=== PATIENT | female | born 2000 | race Caucasian/White ===

== ENCOUNTER → 2024-08-16 11:00 | Day surgery (SDC) | payer BC, SELFPAY ==
--- NOTE | 2024-08-15 16:34 | W.CON.GYNONC ---
Chief Complaint
-
Right Vulvar Cyst
History of Present Illness
23 yo G0 WF presenting for management of right vulvar cyst.
Patient is in college, has had several episodes of pain and swelling. she was seen [address] Mares. had drainage in office by dr Mares. did not do word catheter.
she has been seen by [facility] in [place] while in college, drained some fluid and treated by them with antibiotic.
she is frustrated and is coming in for evaluation.
Medical History
Past Medical History
Additional Past Medical History:
recurrent strep throat infection
Past Surgical History: Reports Tonsilectomy
Social History
Tobacco: Non-smoker
Alcohol: Occasional
Drug: None
Personal: Single
Living: Other (college student)
Employment: Not Employed
Family History
Family History: Reviewed & Not Pertinent
Allergies
Allergies reflect when allergies were last updated in [facility].
No Known Allergies Allergy (Verified 08/15/24 14:59)
Review of Systems
-
History Source: Patient
A 12 point Review of Systems was completed except as noted: Yes
Constitutional: Reports No Symptoms
EENT: Reports No Symptoms
Respiratory: Reports No Symptoms
Cardiac: Reports No Symptoms
Abdomen/GI: Reports No Symptoms
: Reports Other (vulvar discomfort)
Musculoskeletal: Reports No Symptoms
Skin: Reports No Symptoms
Neurological: Reports No Symptoms
Endocrine: Reports No Symptoms
Hematologic/Lymphatic: Reports No Symptoms
Psych: Reports No Symptoms
Physical Exam
Physical Exam
General: Well Developed and No Apparent Distress
HEENT: Normocephalic
Respiratory: Clear
Cardiac: S1/S2 and Regular Rhythm
GI: Soft, Non Tender and Non Distended
Genito-urinary: No Costovertebral Tend
External Genitalia: Lesion Present (labial cyst v Bartholin gland)
Cervix: Normal
Uterus: Normal
Musculoskeletal: No Clubbing, No Cyanosis and No Edema
Skin: Warm and Dry
Neuro: Awake, Alert, Oriented and AO x 3
Hematologic/Lymphatic: No Lymphadenopathy
Psych: Intact Judgement
Impression / Plan
-
23 you wf with recurrent cyst and abcess involving labia suspected to be Bartholin or Davion duct cyst.
plan for exam under ansthesia with excision versus marsupialization of recurrent cyst.
Risks discussed including infection, pain, bleeding, injury to adjacent organs, DVT, PE, CV problems, may also cause dyspareunia, but she is already unable to engage in intercourse due to pain.
[2024-08-16] VITALS (13 sets, daily range): BP systolic 88–111; BP diastolic 58–77; BMI 21.5
[2024-08-16 13:15] LABS: Hematocrit 35.3 % (37.0-47.0); Hemoglobin 12.3 g/dL (12.0-16.0); Mean Corp Hgb Conc. 34.8 g/dL (33.0-37.0); Mean Corpuscular Hgb 28.3 pg (27.0-31.0); Mean Corpuscular Volume 81.1 fL (81.0-99.0); Mean Platelet Volume 9.9 fL (7.4-10.4); Platelet Count 196 10^3/uL (130-400); Red Blood Cell Count 4.35 10^6/uL (4.20-5.40); Red Cell Dist. Width 13.5 % (11.5-14.5); White Blood Cell Count 14.8 10^3/uL (4.8-10.8)
[2024-08-16 13:18] LABS: HCG, Urine Qualitative Screen Negative
[2024-08-16] MEDS: CELEBREX 200 MG PO (13:35)
[2024-08-16] MEDS: TYLENOL 1000 MG PO (13:35)
[2024-08-16] MEDS: NEURONTIN 300 MG PO (13:35)
--- NOTE | 2024-08-16 14:53 | OR.RPT ---
Operative Report
Operative Report
Date of procedure: August 16, 2024
Preoperative diagnosis: Right Bartholin's gland abscess, acute vulvitis
Postoperative diagnosis: Same
Procedure: Exam under anesthesia, drainage and marsupialization of right Bartholin's gland cyst/abscess
Surgeon: Ace Melton MD
Assist: Claudia Freeman PA-C
Anesthesia: General LMA intubation
Estimated blood loss 10 cc
Complications: None
Cultures: Aerobic and anaerobic culture of right Bartholin's gland abscess
Procedure in detail: This patient was seen earlier today in the office and scheduled for an urgent drainage and management of recurrent right Bartholin's gland abscess. She was brought to the operating room and placed in supine position, general
anesthesia was administered and LMA intubation was completed, she was placed in lithotomy position using yellowfin stirrups and prepped on the perineum and vagina and lower abdomen. The patient was draped. Timeout procedure was carried out and she
received 2 g of Ancef for prophylaxis.
Examination of the vulva reveals a 4 x 2 x 3 cm cystic collection of right Bartholin's gland with extension anterior into the anterior labia, there is associated erythema and pain. The vaginal canal is unremarkable. Cervix is normal. Anus and
urethra are normal. Left labia has no evidence of abnormalities currently
We went ahead and performed the 2 x 2 cm cruciate incision on the skin overlying the abscess cyst, we the skin edges from the cyst, we punctured the cyst with a hemostat and drained approximately 30 cc purulent fluid, this fluid was
captured for aerobic and anaerobic culture. I went ahead and irrigated the abscess cavity with a total of 120 cc of sterile saline followed by 20 cc of iodine followed by another 120 cc of sterile saline. Next we went ahead and placed sutures with
3-0 Monocryl on 4 corners incorporating the skin and the wall of the cyst out to an and into out Rajni abutting the cyst wall. 4 additional sutures with 3-0 Vicryl was placed in between these initial sutures. I then examined the abscess cavity and
there was no evidence of bleeding. I packed it with half-inch iodoform. We injected a total of 10 cc 0.5% bupivacaine around the cyst and around the new opening to the abscess.
Patient was awakened extubated and returned back to recovery room stable awake and extubated condition, counts of laps instruments and needle was correct x 2. I was present and scrubbed for entire procedure as dictated above.
Disposition: To PACU, alert awake extubated
--- NOTE | 2024-08-16 17:11 | W.PN.UPDATE ---
Update Note
Progress Note Update
To Whom it may concern,
Nelsy Calderon was seen and evaluated for an emergent issue at [facility] today and underwent an emergent surgical procedure at [facility] on August 16, 2024.. She will remain out of her school and can return back to
resume her classes on Thursday August 22, 2024.
Should there remain any questions or concerns please do not hesitate to contact me directly.
Ace Melton MD
Gynecologic Oncologist
[facility]
[phone]
== END | disposition home or self-care (01) ==
LOC: SDS 11:00
PROVIDERS: ATTENDING PHYSICIAN Obstetrics & Gynecology Gynecologic Oncology
DX: N75.1 Abscess of Bartholin's gland (principal); B95.0 Streptococcus, group A, as the cause of diseases classified elsewhere; N76.2 Acute vulvitis
CPT/HCPCS: 57410; 56405; 81025; 85027; 86850; 86900; 86901; 87070; 87075; 87077; 87147; 87205